=== PATIENT | female | born 1995 | race Caucasian/White ===

== ENCOUNTER 2016-09-12 22:04 | Emergency (ER) | payer BC, OTHER ==
[2016-09-12 22:44] VITALS: BP 108/74
[2016-09-13] MEDS ORDERED: Ciprofloxacin 0.3% OPTH.SOL* 2.5 ML BTL LEFT EYE ONE (00:21)
--- NOTE | 2016-09-13 00:28 | ED ---
Throat Pain/Nasal Congestion - HPI Summary HPI Summary: Patient had a drop of Gorilla glue splash in her left eye when a friend tried to glue a fake jewel to her jacket. She wears contacts so her friends immediately took her contact out of her eye but are unsure if they "got all of it". She flushed the eye with saline solution but still felt like there was something in her eye. She has sensitivity to light but is unsure if her vision has been affected since her vision is so poor at baseline. She denies headache, or previous injury to this eye. - History of Current Complaint Chief Complaint: EDEyeProblem Time Seen by Provider: 09/12/16 23:05 Hx Obtained From: Patient Onset/Duration: Sudden Onset Severity: Severe Associated Signs And Symptoms: Positive: FB Sensation Cough: None - Allergies/Home Medications Allergies/Adverse Reactions: Allergies Allergy/AdvReac Type Severity Reaction Status Date / Time SEAFOOD Allergy Rash Uncoded 09/12/16 22:41 PMH/Surg Hx/FS Hx/Imm Hx Endocrine/Hematology History: Denies: Hx Diabetes, Hx Thyroid Disease Cardiovascular History: Denies: Hx Hypertension Respiratory History: Denies: Hx Asthma, Hx Chronic Obstructive Pulmonary Disease (COPD), Hx Lung Cancer, Hx Pneumonia, Hx Pulmonary Embolism GI History: Denies: Hx Gall Bladder Disease, Hx Gastrointestinal Bleed, Hx Ulcer, Hx Urosepsis History: Denies: Hx Kidney Stones, Hx Renal Disease Sensory History: Reports: Hx Contacts or Glasses - R eye Opthamlomology History: Reports: Hx Contacts or Glasses - R eye Neurological History: Denies: Hx Dementia, Hx Migraine, Hx Seizures, Hx Transient Ischemic Attacks (TIA) Psychiatric History: Denies: Hx Anxiety, Hx Depression, Hx Schizophrenia, Hx Bipolar Disorder - Surgical History Surgery Procedure, Year, and Place: 2009 HYMENECTOMY - Immunization History Date of Tetanus Vaccine: utd Date of Influenza Vaccine: utd Infectious Disease History: No Infectious Disease History: Denies: Hx Clostridium Difficile, Hx Hepatitis, Hx Human Immunodeficiency Virus (HIV), Hx of Known/Suspected MRSA, Hx Shingles, Hx Tuberculosis, Hx Known/ Suspected VRE, Hx Known/Suspected VRSA, History Other Infectious Disease, Traveled Outside the [place] in Last 30 Days - Family History Known Family History: Positive: None Negative: Renal Disease, Blood Disorder Family History: no cardiovascular issues in family lineage - Social History Occupation: Student Lives: Alone Alcohol Use: Occasionally Alcohol Amount: 8 drinks 3 days a week Substance Use Type: Reports: None Smoking Status (MU): Former Smoker Have You Smoked in the Last Year: No Review of Systems Positive: Photophobia, Blurred Vision, Erythema Negative: Headache All Other Systems Reviewed And Are Negative: Yes Physical Exam Triage Information Reviewed: Yes Vital Signs On Initial Exam: Initial Vitals Temp Pulse Resp BP Pulse Ox 98.1 F 90 18 111/79 100 09/12/16 22:19 09/12/16 22:19 09/12/16 22:19 09/12/16 22:19 09/12/16 22:19 Vital Signs Reviewed: Yes Appearance: Positive: Well-Appearing, Well-Nourished, Pain Distress Skin: Positive: Warm, Skin Color Reflects Adequate Perfusion, Dry, Soft Head/Face: Positive: Normal Head/Face Inspection Eyes: Positive: EOMI, BERNARD, Conjunctiva Inflammed - left, Discharge - tears ENT: Positive: Hearing grossly normal Respiratory/Lung Sounds: Positive: Breath Sounds Present Cardiovascular: Positive: RRR Neurological: Positive: Sensory/Motor Intact, Alert, Oriented to Person Place, Time Psychiatric: Positive: Affect/Mood Appropriate AVPU Assessment: Alert - [place] Coma Scale Coma Scale Total: 15 Procedures - Eye Procedure Alcaine Drops Administered: Yes Eye Irrigated w/ Saline (ccs): 1,000 Antibiotic Ointment/Drps Admin: left eye Diagnostics - Vital Signs Vital Signs Temp Pulse Resp BP Pulse Ox 09/12/16 22:38 98.7 F 82 16 108/74 98 09/12/16 22:19 98.1 F 90 18 111/79 100 - Laboratory Lab Statement: Any lab studies that have been ordered have been reviewed, and results considered in the medical decision making process. EENT Course/Dx - Differential Diagnoses Differential Diagnoses: Abrasion, Conjunctivitis, Detached Retina, Keratitis, Mastoiditis, Penetrating Injury, Periorbital/Orbital Cellulitis, Retinal Artery Occlusion - Diagnoses Provider Diagnoses: Scleral hemorrhage - Provider Notifications Discussed Care of Patient with: Dr. Bahena, opthamologist. Discharge - Discharge Plan Condition: Stable Disposition: HOME Referrals: No Primary Care Phys,NOPCP [Primary Care Provider] - Jose Martin Bahena MD [Medical Doctor] - Additional Instructions: Please call Dr. Bahena's office Wednesday for an appointment that day. Use the medication provided as directed. Take ibuprofen 600mg three times daily with meals for the next 2-4 days to decrease pain. Return to the emergency department if symptoms worsen.
[2016-09-13] MEDS ORDERED: Ibuprofen TAB* 600 MG PO ONE (00:35)
[2016-09-13] MEDS ORDERED: Ondansetron ODT TAB* 4 MG PO ONE (00:36)
== END 2016-09-13 01:17 | disposition home or self-care (01) ==
LOC: ED 22:04
DX: H15.89 Other disorders of sclera (principal); Z87.891 Personal history of nicotine dependence
CPT/HCPCS: 99282; A9270-GY

== ENCOUNTER 2017-06-03 10:41 | Emergency (ER) | payer OTHER ==
[2017-06-03 12:11] VITALS: BP 109/65
--- NOTE | 2017-06-03 12:58 | UC ---
Complaint Female HPI - HPI Summary HPI Summary: 21 yo WF c/o dysuria, frequency and urgency 2 days after having sex which shes had in the past - History Of Current Complaint Chief Complaint: UCGU Stated Complaint: URINARY ISSUE Time Seen by Provider: 06/03/17 12:48 Hx Obtained From: Patient Hx Last Menstrual Period: 05/22/17 Onset/Duration: Gradual Onset Timing: Constant, Intermittent Severity Initially: Moderate Pain Intensity: 0 - Allergies/Home Medications Allergies/Adverse Reactions: Allergies Allergy/AdvReac Type Severity Reaction Status Date / Time SEAFOOD Allergy Rash Uncoded 06/03/17 12:11 Home Medications: Home Medications Naproxen TAB* [Naprosyn 250 mg TAB*] 250 mg PO Q8H PRN 06/03/17 [History Confirmed 06/03/17] PMH/Surg Hx/FS Hx/Imm Hx - Additional Past Medical History Additional PMH: UTIs Previously Healthy: Yes Other History Of: Negative For: HIV, Hepatitis B, Hepatitis C - Surgical History Surgical History: Yes Surgery Procedure, Year, and Place: 2009 HYMENECTOMY - Family History Known Family History: Positive: None Negative: Renal Disease, Blood Disorder Family History: no cardiovascular issues in family lineage - Social History Alcohol Use: Occasionally Alcohol Amount: 8 drinks 3 days a week Substance Use Type: None Smoking Status (MU): Former Smoker Have You Smoked in the Last Year: No - Immunization History Most Recent Influenza Vaccination: Season Vaccination Up to Date: Yes Review of Systems Constitutional: Negative Skin: Negative Eyes: Negative ENT: Negative Respiratory: Negative Cardiovascular: Negative Gastrointestinal: Negative Genitourinary: Dysuria, Frequency, Urgency Motor: Negative Neurovascular: Negative Musculoskeletal: Negative Neurological: Negative Psychological: Negative Is Patient Immunocompromised?: No All Other Systems Reviewed And Are Negative: Yes Physical Exam Triage Information Reviewed: Yes Appearance: Well-Appearing Vital Signs: Initial Vital Signs Temp 36.8 C 06/03/17 12:07 Pulse 68 06/03/17 12:07 Resp 15 06/03/17 12:07 BP 109/65 06/03/17 12:07 Pulse Ox 100 06/03/17 12:07 Eye Exam: Normal ENT Exam: Normal Dental Exam: Normal Neck exam: Normal Neck: Positive: 1 Respiratory Exam: Normal Cardiovascular Exam: Normal Abdominal Exam: Normal Abdomen Description: Positive: Soft, Other: - NO suprapubic tenderness. Negative: CVA Tenderness (R), CVA Tenderness (L), Distended, Guarding Musculoskeletal Exam: Normal Neurological Exam: Normal Psychological Exam: Normal Skin Exam: Normal Complaint Female Dx - Course Course Of Treatment: UA positive for blood only but given pt's recurrent sx of UTI, and hematuria, will tx for acute cystitis with Bactrim DS BID x 7days - Differential Dx/Diagnosis Provider Diagnoses: Acute cystitis Discharge - Discharge Plan Condition: Stable Disposition: HOME Prescriptions: Sulfamethox/Trimethoprim DS* [Bactrim DS 800/160 TAB*] 1 tab PO BID 7 Days #14 tab Patient Education Materials: Urinary Tract Infection in Women (ED) Referrals: No Primary Care Phys,NOPCP [Primary Care Provider] - Additional Instructions: as tolerated
== END 2017-06-03 13:35 | disposition home or self-care (01) ==
LOC: UCEAST 10:41
DX: N30.01 Acute cystitis with hematuria (principal); Z87.440 Personal history of urinary (tract) infections; Z32.02 Encounter for pregnancy test, result negative; Z91.013 Allergy to seafood; Z87.891 Personal history of nicotine dependence
CPT/HCPCS: 81003; 81025; 99212; G0463

== ENCOUNTER 2017-07-22 09:24 | Emergency (ER) | payer OTHER ==
[2017-07-22 09:33] VITALS: BP 109/65
--- NOTE | 2017-07-22 09:48 | UC ---
Alphonso Jones Nilda, scribed for Isabela Sterling MD on 07/22/17 at 0946 . Throat Pain/Nasal Ramakrishna HPI - HPI Summary HPI Summary: This patient is a 22 year old F presenting to [facility] with a chief complaint of constant sinus infection-like symptoms. She states shes had symptoms for the past week that had been resolving, but rebounded yesterday. The patient rates the pain 3/10 in severity. Symptoms aggravated and alleviated by nothing including OTC. nasal spray. no analgesia today. Patient reports rhinorrhea ( green), upper jaw pain, post-nasal drip, and cough. Patient denies fever, chills , and eye pain. Pt reports dental discomfort, PND no fever, chills, rash. No magallon , vision changse Daily medications include BCPs. She denies recent travel. NKDA. Patients medication reviewed this visit. - History of Current Complaint Chief Complaint: UCGeneralIllness Stated Complaint: SINUS PAIN Hx Obtained From: Patient Hx Last Menstrual Period: 06/16/17 Onset/Duration: Sudden Onset, Lasting Weeks, Still Present Severity: Mild Pain Intensity: 3 Pain Scale Used: 0-10 Numeric Cough: Nonproductive Associated Signs & Symptoms: Positive: Other - rhinorrhea (green), upper jaw pain, post-nasal drip, and cough. Patient denies fever, chills, and eye pain. - Allergies/Home Medications Allergies/Adverse Reactions: Allergies Allergy/AdvReac Type Severity Reaction Status Date / Time SEAFOOD Allergy Rash Uncoded 07/22/17 09:29 PMH/Surg Hx/FS Hx/Imm Hx Previously Healthy: Yes Other History Of: Negative For: HIV, Hepatitis B, Hepatitis C - Surgical History Surgical History: Yes Surgery Procedure, Year, and Place: 2010 HYMENECTOMY - Family History Known Family History: Negative: Cardiac Disease, Renal Disease, Blood Disorder Family History: no cardiovascular issues in family lineage - Social History Occupation: Student Alcohol Use: Occasionally Alcohol Amount: 8 drinks 3 days a week Substance Use Type: None Smoking Status (MU): Never Smoked Tobacco Have You Smoked in the Last Year: No Household Exposure Type: Cigarettes - Immunization History Most Recent Influenza Vaccination: Season Vaccination Up to Date: Yes Review of Systems Constitutional: Negative Eyes: Negative ENT: Nasal Discharge, Other - post nasal drip, upper jaw pain Respiratory: Cough All Other Systems Reviewed And Are Negative: Yes Physical Exam Triage Information Reviewed: Yes Appearance: Well-Appearing, No Pain Distress, Well-Nourished, Other: - congested Vital Signs: Initial Vital Signs Temp 98.4 F 07/22/17 09:30 Pulse 72 07/22/17 09:30 Resp 16 07/22/17 09:30 BP 109/65 07/22/17 09:30 Pulse Ox 100 07/22/17 09:30 Eye Exam: Normal Eyes: Positive: Conjunctiva Clear ENT Exam: Normal ENT: Positive: Normal ENT inspection, Pharyngeal erythema, Nasal congestion, Other - TM x 2 clear turbinates inflammed and boggy + PND no erythema, exudate uvula midline + erythema Dental Exam: Normal Neck exam: Normal Neck: Positive: Supple, Nontender, No Lymphadenopathy Respiratory Exam: Normal Respiratory: Positive: Chest non-tender, Lungs clear, Normal breath sounds, No respiratory distress, No accessory muscle use Cardiovascular Exam: Normal Cardiovascular: Positive: RRR, No Murmur, Pulses Normal Abdominal Exam: Normal Abdomen Description: Positive: Nontender, No Organomegaly, Soft Bowel Sounds: Positive: Present Musculoskeletal Exam: Normal Neurological Exam: Normal Psychological Exam: Normal Skin Exam: Normal Throat Pain/Nasal Course/Dx - Course Course Of Treatment: pt with progressive sinus congestion x 7 days, green secrtion. pt flying tomorrow. flonase. decongestant. abx. hydrate. motrin/ apap. secretion precaution. humidify - Differential Dx/Diagnosis Provider Diagnoses: sinusitis Discharge - Sign-Out/Discharge Documenting (check all that apply): Discharge - Discharge Plan Condition: Stable Disposition: HOME Prescriptions: Amoxicillin PO (*) [Amoxicillin 875 MG (*)] 875 mg PO BID #20 tab Fluticasone NASAL SPRAY 50MCG* [Flonase NASAL SPRAY 50MCG*] 2 spray BOTH NARES DAILY #1 btl Patient Education Materials: Sinusitis (ED) Referrals: [facility] [Provider Group] No Primary Care Phys,NOPCP [Primary Care Provider] - Additional Instructions: - Stay well hydrated. Drink plenty of non-alcoholic, non-caffinated beverages. - Alternate ibuprofen (Advil, Motrin) 600mg and Tylenol every 3 hours for pain or fever. Take with food. Do NOT take for more than 4-5 days. - These infections are spread by secretions - do NOT share eating or drinking utensils - clean items you share with other people such as cell phones, computer mouse, TV remote, computer tablets, etc. After you take antibiotics, , change your toothbrush and your pillowcase. - get plenty of restful sleep - use nasal spray daily as instructed. - humidify the air in the room where you sleep - boil water, run a hot steam shower, vaporizer, cups of water by heat register - okay to take over the counter decongestant and cough medication - it is recommended you take pseudoephederine to help with your congestion - contact your doctor or return with questions or concerns - Billing Disposition and Condition Condition: STABLE Disposition: HOME The documentation as recorded by the Alphonso cazares Nilda accurately reflects the service I personally performed and the decisions made by me, Isabela Sterling MD.
== END 2017-07-22 10:00 | disposition home or self-care (01) ==
LOC: UCEAST 09:24
DX: J32.9 Chronic sinusitis, unspecified (principal)
CPT/HCPCS: 99212; G0463

== ENCOUNTER 2017-09-28 13:45 | Emergency (ER) | payer BC, OTHER ==
[2017-09-28 13:57] VITALS: BP 107/65
--- NOTE | 2017-09-28 14:57 | UC ---
Complaint Female HPI - HPI Summary HPI Summary: SEVERAL DAYS OF DYSURIA, URINARY FREQUENCY AND URGENCY. NO FEVER, NAUSEA OR BACK PAIN. - History Of Current Complaint Chief Complaint: UCGU Stated Complaint: URINARY ISSUE Time Seen by Provider: 09/28/17 14:40 Hx Obtained From: Patient Hx Last Menstrual Period: 09/12/17 Onset/Duration: Gradual Onset, Lasting Days, Still Present Timing: Constant Severity Initially: Moderate Severity Currently: Moderate Pain Intensity: 3 Pain Scale Used: 0-10 Numeric Character: Burning Aggravating Factor(s): Urination Associated Signs And Symptoms: Negative: Fever, Back Pain, Nausea, Vomiting(# Of Episodes =) - Allergies/Home Medications Allergies/Adverse Reactions: Allergies Allergy/AdvReac Type Severity Reaction Status Date / Time SEAFOOD Allergy Rash Uncoded 09/28/17 13:57 PMH/Surg Hx/FS Hx/Imm Hx Previously Healthy: Yes Other History Of: Negative For: HIV, Hepatitis B, Hepatitis C - Surgical History Surgical History: Yes Surgery Procedure, Year, and Place: 2009 HYMENECTOMY - Family History Known Family History: Positive: None Negative: Cardiac Disease, Renal Disease, Blood Disorder Family History: no cardiovascular issues in family lineage - Social History Alcohol Use: Rare Alcohol Amount: 8 drinks 3 days a week Substance Use Type: None Smoking Status (MU): Never Smoked Tobacco Have You Smoked in the Last Year: No Household Exposure Type: Cigarettes - Immunization History Most Recent Influenza Vaccination: Season Vaccination Up to Date: Yes Review of Systems Constitutional: Negative ENT: Negative Respiratory: Negative Cardiovascular: Negative Gastrointestinal: Negative Genitourinary: Dysuria, Frequency, Urgency All Other Systems Reviewed And Are Negative: Yes Physical Exam Triage Information Reviewed: Yes Appearance: Well-Appearing, No Pain Distress, Well-Nourished Vital Signs: Initial Vital Signs Temp 98 F 09/28/17 13:54 Pulse 68 09/28/17 13:54 Resp 15 09/28/17 13:54 BP 107/65 09/28/17 13:54 Pulse Ox 100 09/28/17 13:54 Vital Signs Reviewed: Yes Eyes: Positive: Conjunctiva Clear ENT: Positive: Hearing grossly normal Neck: Positive: Supple Respiratory: Positive: No respiratory distress, No accessory muscle use Cardiovascular: Positive: Pulses Normal Abdomen Description: Positive: Nontender, Soft. Negative: CVA Tenderness (R), CVA Tenderness (L), Distended, Guarding Musculoskeletal: Positive: No Edema Neurological: Positive: Alert Psychological: Positive: Age Appropriate Behavior Skin: Negative: rashes Diagnostics - Laboratory Diagnostic Studies Completed/Ordered: URINE DIP SP. GR. 1.025, 2+ BLOOD, TRACE LEUKS, POSITIVE NITRITES. URINE HCG NEG Complaint Female Dx - Differential Dx/Diagnosis Provider Diagnoses: UTI Discharge - Sign-Out/Discharge Documenting (check all that apply): Discharge/Admit/Transfer - Discharge Plan Condition: Stable Disposition: HOME Prescriptions: Sulfamethox/Trimethoprim DS* [Bactrim DS 800/160 TAB*] 1 tab PO BID #10 tab Patient Education Materials: Urinary Tract Infection in Women (ED) Referrals: No Primary Care Phys,NOPCP [Primary Care Provider] - Additional Instructions: CALL THE NUMBER BELOW FOR ASSISTANCE IN ESTABLISHING WITH A PCP An additional resource available to assist in finding the appropriate physician for your health care needs is the [facility] ([facility]). You may contact them by calling [phone]. - Billing Disposition and Condition Condition: STABLE Disposition: Home
== END 2017-09-28 14:56 | disposition home or self-care (01) ==
LOC: UCEAST 13:45
DX: N39.0 Urinary tract infection, site not specified (principal); Z32.02 Encounter for pregnancy test, result negative; Z91.013 Allergy to seafood
CPT/HCPCS: 81003; 84702; 87077; 87086; 87186; 99212; G0463

== ENCOUNTER 2018-06-21 10:54 | Emergency (ER) | payer BC ==
[2018-06-21 11:14] VITALS: BP 101/55
--- NOTE | 2018-06-21 11:24 | UC ---
Complaint Female HPI - HPI Summary HPI Summary: 22 yo female presents with low back pain. She tells me that she has had UTIs in the past and the only symptoms she usually has is sudden low back pain and no urinary symptoms. Her low back pain started yesterday with no known injury. She is not having any urinary symptoms such as dysuria, frequency, or hematuria. Denies abdominal pain, n/v, or fever. No hx of kidney stone. - History Of Current Complaint Chief Complaint: UCGU Stated Complaint: L BACK PAIN Time Seen by Provider: 06/21/18 11:23 Hx Obtained From: Patient Hx Last Menstrual Period: 06/20/18 Onset/Duration: Sudden Onset Severity Initially: Mild Severity Currently: Mild Pain Intensity: 3 Pain Scale Used: 0-10 Numeric - Allergies/Home Medications Allergies/Adverse Reactions: Allergies Allergy/AdvReac Type Severity Reaction Status Date / Time No Known Allergies Allergy Verified 06/21/18 11:14 Home Medications: Home Medications Norethindrone AC-Eth Estradiol [Junel 05/15] 1 tab PO DAILY WITH MEAL 06/21/18 [ History Confirmed 06/21/18] PMH/Surg Hx/FS Hx/Imm Hx - Additional Past Medical History Additional PMH: None Other History Of: Negative For: HIV, Hepatitis B, Hepatitis C - Surgical History Surgical History: Yes Surgery Procedure, Year, and Place: 2010 HYMENECTOMY - Family History Known Family History: Positive: None Negative: Cardiac Disease, Renal Disease, Blood Disorder Family History: no cardiovascular issues in family lineage - Social History Lives: With Family Alcohol Use: Occasionally Alcohol Amount: 8 drinks 3 days a week Substance Use Type: None Smoking Status (MU): Former Smoker Have You Smoked in the Last Year: No Household Exposure Type: Cigarettes - Immunization History Most Recent Influenza Vaccination: Season Vaccination Up to Date: Yes Review of Systems All Other Systems Reviewed And Are Negative: Yes Constitutional: Positive: Negative Skin: Positive: Negative Respiratory: Positive: Negative Cardiovascular: Positive: Negative Gastrointestinal: Positive: Negative Genitourinary: Positive: Negative Musculoskeletal: Positive: Other: - back pain Neurological: Positive: Negative Psychological: Positive: Negative Physical Exam - Summary Physical Exam Summary: GENERAL: NAD. WDWN. No pain distress. SKIN: No rashes, sores, lesions, or open wounds. NECK: Supple. Nontender. No lymphadenopathy. CHEST: CTAB. No r/r/w. No accessory muscle use. Breathing comfortably and in no distress. CV: RRR. Without m/r/g. Pulses intact. Cap refill <2seconds ABDOMEN: Soft. NTTP. No distention or guarding. No CVA tenderness. Bowel sounds present NEURO: Alert. PSYCH: Age appropriate behavior. Triage Information Reviewed: Yes Vital Signs: Initial Vital Signs Temp 98.6 F 06/21/18 11:10 Pulse 74 06/21/18 11:10 Resp 18 06/21/18 11:10 BP 101/55 06/21/18 11:10 Pulse Ox 100 06/21/18 11:10 Laboratory Tests 06/21/18 11:30 POC Urine Color Dark yellow POC Urine Clarity Slightly cloudy POC Urine pH 5.5 POC Ur Specif [place] 1.025 POC Urine Protein Negative POC Ur Glucose (UA) Negative POC Urine Ketones Negative POC Urine Blood 2+ A POC Urine Nitrite Negative POC Urine Bilirubin Negative POC Urine Urobilinogen 0.2 POC U Leukocyte Esteras Trace A Vital Signs Reviewed: Yes Complaint Female Dx - Course Course Of Treatment: UA with leuks and blood - pt currently on period. Will treat as UTI and f/u with culture results. - Differential Dx/Diagnosis Provider Diagnosis: UTI (urinary tract infection) Discharge - Sign-Out/Discharge Documenting (check all that apply): Patient Departure All imaging exams completed and their final reports reviewed: No Studies - Discharge Plan Condition: Stable Disposition: HOME Prescriptions: Nitrofurantoin Monohyd/M-Cryst [Macrobid 100 mg Capsule] 100 mg PO BID #10 cap Patient Education Materials: Urinary Tract Infection in Women (DC) Referrals: No Primary Care Phys,NOPCP [Primary Care Provider] - Additional Instructions: If you develop a fever, shortness of breath, chest pain, new or worsening symptoms - please call your PCP or go to the ED. - Billing Disposition and Condition Condition: STABLE Disposition: Home
--- NOTE | 2018-06-23 08:54 | UC ---
- Progress Note Progress Note: urine no growth no change [facility] 06/23 Course/Dx - Diagnoses Provider Diagnoses: UTI (urinary tract infection) Discharge - Sign-Out/Discharge Documenting (check all that apply): Post-Discharge Follow Up All imaging exams completed and their final reports reviewed: No Studies - Discharge Plan Condition: Stable Disposition: HOME Prescriptions: Nitrofurantoin Monohyd/M-Cryst [Macrobid 100 mg Capsule] 100 mg PO BID #10 cap Patient Education Materials: Urinary Tract Infection in Women (DC) Referrals: No Primary Care Phys,NOPCP [Primary Care Provider] - Additional Instructions: If you develop a fever, shortness of breath, chest pain, new or worsening symptoms - please call your PCP or go to the ED. - Billing Disposition and Condition Condition: STABLE Disposition: Home
== END 2018-06-21 11:59 | disposition home or self-care (01) ==
LOC: UCEAST 10:54
DX: N39.0 Urinary tract infection, site not specified (principal); Z87.891 Personal history of nicotine dependence
CPT/HCPCS: 81003; 87086; 99212; G0463

== ENCOUNTER 2018-08-22 07:01 | Emergency (ER) | payer OTHER, BC ==
--- OUTSIDE RECORDS SUMMARY | 2018-08-22 07:08 | XMS REPORT | Continuity of Care Document ---
:1995 Author Organization [facility] Address [address] [place], [place] [id number] Phone Care Team Providers Name Role Phone Marilee Diaz NP Unavailable Unavailable Allergies, Adverse Reactions, Alerts Substance Reaction Status No Known Allergies Active Medications Medication Instructions Dosage Effective Dates Status Comments (start - stop) (unknown Not Available - Active strength) Problems Condition Effective Dates (start - Clinical Status Comments stop) Encntr screen for infections w sexl mode of transmiss Encounter for surveillance of contraceptive pills Procedures Procedure Date OFFICE/OUTPATIENT VISIT, 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 Other Pediatric Associate.Svc. STI Results Test Name Date and Time Measure Units Reference Range Abnormal Flag Status Comments No information Advance Directives Directive Yes / No Effective Date File Name No information Encounters Encounter Practice Location Reason(s) Diagnoses Date Provider Providers Description For Visit Copied on Encounter OFFICE/OUTPA [facility] Encntr screen for Mar-2 [place] [facility] [address]. Provider: CHARLA [facility] exam (F) mode of [address] (chief transmissEncounter [place], [address], [address] complaint) for surveillance of [address] [place] contraceptive pills [place], [place], [place], [place], [address], [place], [id number]. [id number], [place]. [place] tel:[phone] Family History Family Member Diagnosis Age At Onset No information Immunizations Vaccine Date Status Comments No information Payers Payer name Insurance type Covered republican ID Authorization(s) [facility] [id number] Social History Type Description Quantity Date Captured Comments Alcohol Use Details Unknown Caffeine Use Details Unknown Tobacco Use Status Current non-smoker Smoking Status Never smoker Non-Smoking Tobacco : No Details Available : No Details Available 2018 Use Details Sex Female Vital Signs Date / Height Weight BMI Pulse Blood Temperature Respiratory Body Head BMI Pulse Inhaled Time: Rate Pressure Rate Surface Circumference percentile Ox Ox Area No information Chief Complaint And Reason For Visit Most recent encounter only, dated 07/21/2018 13:50'. STI without exam (F ) (chief complaint) Reason For Referral Reason For Referral No information Plan Of Treatment Date Type Action Status No information History Of Present Illness Encounter Date Complaint History Of Present Illness No information Functional Status Date Functional Assessment No information Medications Administered Medication Instructions Dosage Effective Dates (start - stop) Status Comments No information Instructions Date Instruction Additional Information No information Assessments Type Assessment Date assessment Encntr screen for infections w sexl mode of transmiss assessment Encounter for surveillance of contraceptive pills Goals Health Concern Goal Type Priority Status Date No information Medical Equipment Description Device [facility] Device Identifier Effective Dates (start - stop ) Status No information Mental Status Date Cognitive Assessment No information Health Concerns Observation Date No information Concern Status Date No information
[2018-08-22] MEDS ORDERED: Ibuprofen TAB* 400 MG PO ONE (07:15)
[2018-08-22] MEDS ORDERED: cefTRIAXone VIAL(*) 1,000 MG VIAL IM ONE (07:15)
[2018-08-22] MEDS ORDERED: Lidocaine 1% MPF* 2 ML VIAL INJ ONE (07:15)
[2018-08-22 07:16] VITALS: BP 115/74
--- NOTE | 2018-08-22 07:20 | UC ---
Complaint Female HPI - HPI Summary HPI Summary: 23-year-old otherwise healthy female with a history of UTI/kidney infection presents with dysuria, frequency and left-sided low back pain that began yesterday. She states that sometimes her urinary symptoms go unnoticed until its late in the course. She denies any fever, nausea, vomiting or abdominal pain. She has no history of kidney stones. She denies allergy to medication. She has had a mild sore throat. - History Of Current Complaint Chief Complaint: UCGU Stated Complaint: KIDNEY PAIN Time Seen by Provider: 08/22/18 07:08 Hx Obtained From: Patient Hx Last Menstrual Period: 08/18/18 Pain Intensity: 6 - Allergies/Home Medications Allergies/Adverse Reactions: Allergies Allergy/AdvReac Type Severity Reaction Status Date / Time No Known Allergies Allergy Verified 08/22/18 07:15 PMH/Surg Hx/FS Hx/Imm Hx Previously Healthy: Yes GI/ History: Other - UTI/kidney infections Other History Of: Negative For: HIV, Hepatitis B, Hepatitis C - Surgical History Surgical History: Yes Surgery Procedure, Year, and Place: 2009 HYMENECTOMY - Family History Known Family History: Positive: None Negative: Cardiac Disease, Renal Disease, Blood Disorder Family History: no cardiovascular issues in family lineage - Social History Alcohol Use: Occasionally Alcohol Amount: 8 drinks 3 days a week Substance Use Type: None Smoking Status (MU): Former Smoker Have You Smoked in the Last Year: No Household Exposure Type: Cigarettes - Immunization History Most Recent Influenza Vaccination: Season Vaccination Up to Date: Yes Review of Systems All Other Systems Reviewed And Are Negative: Yes Constitutional: Negative: Fever, Chills Respiratory: Positive: Negative Cardiovascular: Positive: Negative Gastrointestinal: Negative: Abdominal Pain, Nausea Genitourinary: Positive: Dysuria, Frequency Motor: Positive: Negative Musculoskeletal: Positive: Other: - L low back pain Is Patient Immunocompromised?: Yes Physical Exam Triage Information Reviewed: Yes Appearance: Well-Appearing, No Pain Distress, Well-Nourished Vital Signs: Initial Vital Signs Temp 98.3 F 08/22/18 07:09 Pulse 82 08/22/18 07:09 Resp 18 08/22/18 07:09 BP 115/74 08/22/18 07:09 Pulse Ox 99 08/22/18 07:09 Eye Exam: Normal ENT: Positive: Pharynx normal. Negative: Pharyngeal erythema Neck: Positive: Supple Respiratory: Positive: Lungs clear Cardiovascular: Positive: RRR Abdomen Description: Positive: Nontender, Soft Bowel Sounds: Positive: Present Pelvic Exam: Positive: Other - L CVA tenderness without pain with palpations Musculoskeletal: Positive: Strength Intact, ROM Intact Neurological Exam: Normal Skin Exam: Normal Complaint Female Dx - Course Course Of Treatment: Patient was significant inflammatory findings in the urine. Minor CVA tenderness. No fever and no nausea/vomiting. IM Rocephin given here and will continue Keflex, Pyridium. Follow-up with [facility]. - Differential Dx/Diagnosis Differential Diagnosis/HQI/PQRI: Renal Colic, Sexually Transmitted Disease, Ureteral Stone, Urinary Tract Infection Provider Diagnosis: UTI (urinary tract infection) Discharge - Sign-Out/Discharge Documenting (check all that apply): Patient Departure All imaging exams completed and their final reports reviewed: No Studies - Discharge Plan Condition: Improved Disposition: HOME Prescriptions: Cephalexin CAP* [Keflex CAP*] 500 mg PO TID #20 cap Naproxen [Naproxen 250 mg tab] 250 mg PO BID PRN #20 tablet PRN Reason: Pain Phenazopyridine 200 mg (NF) [Pyridium 200 MG tab *] 200 mg PO TID #9 tab Patient Education Materials: Urinary Tract Infection in Women (ED) Referrals: [facility] [Provider Group] Additional Instructions: Drink plenty of fluids today, cranberry juice may help. Return with fever, nausea/vomiting, worsening, new symptoms or other concerns. - Billing Disposition and Condition Condition: IMPROVED Disposition: Home - Attestation Statements Document Initiated by Lianna: No
[2018-08-22] MEDS ORDERED: Lidocaine 1%* 5 ML VIAL ONE (07:36)
[2018-08-22] MEDS ORDERED: Lidocaine 1%* 5 ML VIAL INJ ONE (07:41)
== END 2018-08-22 08:00 | disposition home or self-care (01) ==
LOC: UCEAST 07:01
DX: N39.0 Urinary tract infection, site not specified (principal); Z87.440 Personal history of urinary (tract) infections; J02.9 Acute pharyngitis, unspecified; Z87.891 Personal history of nicotine dependence
CPT/HCPCS: 81003; 84702; 87077; 87086; 87186; 96372; 99212; A9270-GY; G0463; J0696

== ENCOUNTER 2019-04-20 09:29 | Emergency (ER) | payer BC ==
--- OUTSIDE RECORDS SUMMARY | 2019-04-20 09:36 | XMS REPORT | Summary of Care ---
:1995 Author Organization [facility] [place] [address] Care Team Providers Name Role Phone Unavailable Primary Care Provider Unavailable Reason for Referral Diagnostic Imaging (Routine) Status Reason Specialty Diagnoses / Procedures Referred By Contact Referred To Contact Closed Diagnoses Adolescent multigravida 16 years of age or older in third trimester Larisa Benites, Procedures US OB Abd Follow Up [address] [place] [address] Reason for Visit Diagnostic Imaging (Routine) Status Reason Specialty Diagnoses / Procedures Referred By Contact Referred To Contact Closed Diagnoses Adolescent multigravida 16 years of age or older in third trimester Larisa Benites, Procedures US OB Abd Follow Up [address] [place] [address] Encounter Details Date Type Department Care Team Description 04/18/2019 Hospital Encounter POB ULTRASOUND Jose Gjewell, Adolescent [facility] [place] Larisa multigravida [address] of age or older in [facility] third trimester [address] [place], [place] [phone] [address] [phone] Allergies Not on Filedocumented as of this encounter (statuses as of 04/19/2019) Medications Not on filedocumented as of this encounter (statuses as of 04/19/2019) Active Problems Not on filedocumented as of this encounter (statuses as of 04/19/2019) Social History Tobacco Use Types Packs/Day Years Used Date Never Assessed Sex Assigned at Date Recorded Female 03/09/2019 1:20 PM EST Job Start Date Occupation Industry Not on file Not on file Not on file Travel History Travel Start Travel End No recent travel history available. documented as of this encounter Plan of Treatment Health Maintenance Due Date Last Done Comments CERVICAL CANCER SCREENING 3 YEAR 1995 HPV Vaccine-3 doses (1 - Female 2-dose series) 07/19/2006 Tetanus,Diphtheria,Pertussis (Tdap) Vaccine (#1) 07/19/2006 documented as of this encounter Procedures Procedure Name Priority Date/Time Associated Diagnosis Comments US OB ABD Routine 04/18/2019 9:50 Adolescent Results for this FOLLOWUP AM EST multigravida 16 years procedure are in of age or older in the results third trimester section. documented in this encounter Results US OB ABD FOLLOWUP (04/18/2019 9:50 AM EST) Specimen Impressions Performed At IMPRESSION: [facility] 1. Single Live Intrauterine Gestation averaging 31 weeks and 3 days. EDC based on 1st sonogram is 06/24/2019 Narrative Performed At EXAMINATION: [facility] US OB ABD FOLLOWUP HISTORY: Adolescent multigravida 16 years of age or older in third trimester COMPARISON: 18 TECHNIQUE: sonography was performed. FINDINGS: Transabdominal evaluation of the gravid uterus demonstrates a single live intrauterine gestation in vertex presentation. The placenta has formed fundal/anterior free of the internal cervical os. There is a normal amount of amniotic fluid with an index of 14.4 cm. Biparietal diameter: 31 weeks Head circumference: 31 weeks 1 day Abdominal circumference: 32 weeks 6 days Femur length: 30 weeks 4 days The composite gestational age based on ultrasound criteria is 31 weeks, 3 days. The estimated date of confinement based on today's study is 06/24/2027. Estimated weight is 1849 g which corresponds to 70 percentile for corresponding gestational age There is normal diaphragm, stomach, bladder cardiac activity is present at 146 beats per minute. body motion is present. Cervical length measures 3.7 cm Procedure Note Clif, External Ris In - 04/18/2019 10:18 AM EST EXAMINATION: US OB ABD FOLLOWUP HISTORY: Adolescent multigravida 16 years of age or older in third trimester COMPARISON: 18 TECHNIQUE: sonography was performed. FINDINGS: Transabdominal evaluation of the gravid uterus demonstrates a single live intrauterine gestation in vertex presentation. The placenta has formed fundal/anterior free of the internal cervical os. There is a normal amount of amniotic fluid with an index of 14.4 cm. Biparietal diameter: 31 weeks Head circumference: 31 weeks 1 day Abdominal circumference: 32 weeks 6 days Femur length: 30 weeks 4 days The composite gestational age based on ultrasound criteria is 31 weeks, 3 days. The estimated date of confinement based on today's study is 06/24/2027. Estimated weight is 1849 g which corresponds to 70 percentile for corresponding gestational age There is normal diaphragm, stomach, bladder cardiac activity is present at 146 beats per minute. body motion is present. Cervical length measures 3.7 cm IMPRESSION: 1. Single Live Intrauterine Gestation averaging 31 weeks and 3 days. EDC based on 1st sonogram is 06/24/2019 Performing Organization Address City/State/Zipcode Phone Number [facility] documented in this encounter Visit Diagnoses Diagnosis Adolescent multigravida 16 years of age or older in third trimester documented in this encounter documented as of this encounter
--- OUTSIDE RECORDS SUMMARY | 2019-04-20 09:36 | XMS REPORT | Summary of Care ---
:1995 Author Organization [facility] Address [place] [address] Care Team Providers Name Role Phone Unavailable Primary Care Provider Unavailable Reason for Referral Diagnostic Imaging (Routine) Status Reason Specialty Diagnoses / Referred By Referred To Procedures Contact Contact Pending Review Diagnoses Encounter for test, result positive [place], Procedures US OB After 1St Trimester Evelyn, DO [address] [place] [address] Reason for Visit Diagnostic Imaging (Routine) Status Reason Specialty Diagnoses / Referred By Referred To Procedures Contact Contact Pending Review Diagnoses Encounter for test, result positive [place], Procedures US OB After 1St Trimester Evelyn, DO [address] [place] [address] Encounter Details Date Type Department Care Team Description 03/09/2019 Hospital Encounter POB ULTRASOUND [place], Encounter for [address] [facility] Evelyn, test, [place] [address] [address] result positive [phone] [place] [address] [phone] Allergies Not on Filedocumented as of this encounter (statuses as of 03/10/2019) Medications Not on filedocumented as of this encounter (statuses as of 03/10/2019) Active Problems Not on filedocumented as of this encounter (statuses as of 03/10/2019) Social History Tobacco Use Types Packs/Day Years Used Date Never Assessed Sex Assigned at Date Recorded Female 03/09/2019 1:20 PM EST Job Start Date Occupation Industry Not on file Not on file Not on file Travel History Travel Start Travel End No recent travel history available. documented as of this encounter Plan of Treatment Not on filedocumented as of this encounter Procedures Procedure Name Priority Date/Time Associated Diagnosis Comments US OB AFTER 1ST Routine 03/09/2019 2:37 PM Encounter for Results for this TRIMESTER EST test, procedure are in result positive the results section. documented in this encounter Results US OB AFTER 1ST TRIMESTER (03/09/2019 2:37 PM EST) Specimen Impressions Performed At IMPRESSION: [facility] 1. Single Live Intrauterine Gestation averaging 24 weeks and 5 days. 2. Four-chamber view of the heart and right ventricular outflow tract view are not well assessed Narrative Performed At EXAMINATION: [facility] US OB AFTER 1ST TRIMESTER HISTORY: Encounter for test, result positive COMPARISON: None. TECHNIQUE: sonography was performed. FINDINGS: Transabdominal evaluation of the gravid uterus demonstrates a single live intrauterine gestation in variable presentation. The placenta has formed anteriorly and fundally and is free of the internal cervical os. There is a normal amount of amniotic fluid with an index of 17.6 cm. The largest fluid pocket measures 5.5 cm Biparietal diameter: 60.8 mm corresponding to a 24 week 5 day gestational size Head circumference: 215.4 mm corresponding to a 23 week 4 day gestational size Abdominal circumference: 207.5 mm corresponding to a 25 week 2 day gestational size Femur length: 45.8 mm corresponding to a 25 week 1 day gestational size The composite gestational age based on ultrasound criteria is 24 weeks, 5 days. The estimated date of confinement based on today's study is 06/24/2019. Anatomy: Head: Normal. Face, Neck: Normal. Thoracic Cavity: Normal. Heart: Four-chamber view of the heart is not well assessed. Outflow Tracts: The left ventricular outflow tract is normal. The right ventricular outflow tract view is not well assessed Abdominal Cavity: Normal. Stomach: Normal. Right Kidney: Normal. Left Kidney: Normal. Bladder: Normal. Abdominal Wall: Normal. Spine: Normal. Extremities: Normal. Genitalia: Not well assessed Umbilical Cord: 3 vessel view of the umbilical cord with insertional views are normal. cardiac activity is present at 137 beats per minute. body motion is present. The cervix measures 3.7 cm. The estimated weight is 766 g plus or minus 115 g Procedure Note Clif, External Ris In - 03/09/2019 4:15 PM EST EXAMINATION: US OB AFTER 1ST TRIMESTER HISTORY: Encounter for test, result positive COMPARISON: None. TECHNIQUE: sonography was performed. FINDINGS: Transabdominal evaluation of the gravid uterus demonstrates a single live intrauterine gestation in variable presentation. The placenta has formed anteriorly and fundally and is free of the internal cervical os. There is a normal amount of amniotic fluid with an index of 17.6 cm. The largest fluid pocket measures 5.5 cm Biparietal diameter: 60.8 mm corresponding to a 24 week 5 day gestational size Head circumference: 215.4 mm corresponding to a 23 week 4 day gestational size Abdominal circumference: 207.5 mm corresponding to a 25 week 2 day gestational size Femur length: 45.8 mm corresponding to a 25 week 1 day gestational size The composite gestational age based on ultrasound criteria is 24 weeks, 5 days. The estimated date of confinement based on today's study is 06/24/2019. Anatomy: Head: Normal. Face, Neck: Normal. Thoracic Cavity: Normal. Heart: Four-chamber view of the heart is not well assessed. Outflow Tracts: The left ventricular outflow tract is normal. The right ventricular outflow tract view is not well assessed Abdominal Cavity: Normal. Stomach: Normal. Right Kidney: Normal. Left Kidney: Normal. Bladder: Normal. Abdominal Wall: Normal. Spine: Normal. Extremities: Normal. Genitalia: Not well assessed Umbilical Cord: 3 vessel view of the umbilical cord with insertional views are normal. cardiac activity is present at 137 beats per minute. body motion is present. The cervix measures 3.7 cm. The estimated weight is 766 g plus or minus 115 g IMPRESSION: 1. Single Live Intrauterine Gestation averaging 24 weeks and 5 days. 2. Four-chamber view of the heart and right ventricular outflow tract view are not well assessed Performing Organization Address City/State/Zipcode Phone Number [facility] documented in this encounter Visit Diagnoses Diagnosis Encounter for test, result positive examination or test, positive result documented in this encounter Insurance Payer Benefit Plan / Subscriber ID Effective Dates Phone Address Type Group MEDICAID [place] MEDICA[place] xxxxxxxx 2019-Present documented as of this encounter
[2019-04-20 09:40] VITALS: BP 102/66
--- NOTE | 2019-04-20 10:01 | UC ---
Lower Extremity/Ankle HPI - HPI Summary HPI Summary: 23 yo woman, takes oral contraceptives, with pain in the left calf x 2 days. Recently flew back from [place] x 2 days ago, with onset of pain after taking a nap with her left leg tucked under her body-->awoke with pain in the calf. Smokes occasionally, negative FH of clotting disorders. - History of Current Complaint Chief Complaint: UCLowerExtremity Stated Complaint: PAIN IN BACK OF LEG Time Seen by Provider: 04/20/19 09:59 Hx Obtained From: Patient Hx Last Menstrual Period: 08/18/18 Onset/Duration: Sudden Onset, Lasting Days Severity Initially: Moderate Severity Currently: Moderate Pain Intensity: 7 Aggravating Factor(s): Standing, Ambulation Alleviating Factor(s): Rest Able to Bear Weight: Yes - Risk Factors Gout Risk Factors: Negative DVT Risk Factors: Oral Contraceptives, Smoking, Recent Travel Septic Arthritis Risk Factor: Negative - Allergies/Home Medications Allergies/Adverse Reactions: Allergies Allergy/AdvReac Type Severity Reaction Status Date / Time No Known Allergies Allergy Verified 04/20/19 09:40 PMH/Surg Hx/FS Hx/Imm Hx Previously Healthy: Yes Other History Of: Negative For: HIV, Hepatitis B, Hepatitis C - Surgical History Surgical History: Yes Surgery Procedure, Year, and Place: 2010 HYMENECTOMY - Family History Known Family History: Positive: None, Other - No FH of DVT Negative: Cardiac Disease, Renal Disease, Blood Disorder Family History: no cardiovascular issues in family lineage - Social History Occupation: Student - just graduated Lives: With Family Alcohol Use: Occasionally Alcohol Amount: 8 drinks 3 days a week Substance Use Type: None Smoking Status (MU): Former Smoker Have You Smoked in the Last Year: No Household Exposure Type: Cigarettes - Immunization History Most Recent Influenza Vaccination: Season Vaccination Up to Date: Yes Review of Systems All Other Systems Reviewed And Are Negative: Yes Constitutional: Positive: Negative Skin: Positive: Negative Eyes: Positive: Negative ENT: Positive: Negative Respiratory: Negative: Shortness Of Breath, Cough Cardiovascular: Negative: Chest Pain Gastrointestinal: Positive: Negative Genitourinary: Positive: Negative Motor: Positive: Negative Neurovascular: Positive: Other - swelling posterior left calf Musculoskeletal: Positive: Negative Neurological: Positive: Negative Psychological: Positive: Negative Is Patient Immunocompromised?: No Physical Exam Triage Information Reviewed: Yes Appearance: Well-Appearing, No Pain Distress Vital Signs: Initial Vital Signs Temp 98 F 04/20/19 09:37 Pulse 74 04/20/19 09:37 Resp 16 04/20/19 09:37 BP 102/66 04/20/19 09:37 Pulse Ox 100 04/20/19 09:37 ENT: Positive: Pharynx normal Neck: Positive: Supple, Nontender, No Lymphadenopathy Respiratory: Positive: Lungs clear, Normal breath sounds Cardiovascular: Positive: RRR, No Murmur Musculoskeletal Exam: Other - left calf very tender to palpation just inferior to the left knee joint, measuring 0.5 cm larger than the right side. No erythema or edema. Neurological Exam: Normal Psychological Exam: Normal Skin Exam: Normal Diagnostics - Radiology No standard instances Radiology Interpretation Completed By: Radiologist Summary of Radiographic Findings: No evidence of deep venous thrombosis per Dr. Camejo. Lower Extremity Course/Dx - Course Course Of Treatment: Hot compressing and ibuprofen for MSK pain - Differential Dx/Diagnosis Differential Diagnosis/HQI/PQRI: Cellulitis, Contusion, DVT, Sprain, Strain Provider Diagnosis: Gastrocnemius strain, left Discharge ED - Sign-Out/Discharge Documenting (check all that apply): Patient Departure All imaging exams completed and their final reports reviewed: Yes - Discharge Plan Condition: Stable Disposition: HOME Patient Education Materials: Musculoskeletal Pain (ED) Referrals: No Primary Care Phys,NOPCP [Primary Care Provider] - Additional Instructions: There is no evidence of clot. You can warm compress the muscle, and use ibuprofen 600mg up to 3 times per day for pain. - Billing Disposition and Condition Condition: STABLE Disposition: Home
== END 2019-04-20 11:58 | disposition home or self-care (01) ==
LOC: UCEAST 09:29
DX: S86.912A Strain of unspecified muscle(s) and tendon(s) at lower leg level, left leg, initial encounter (principal); Z87.891 Personal history of nicotine dependence; X58.XXXA Exposure to other specified factors, initial encounter; Y92.9 Unspecified place or not applicable
CPT/HCPCS: 99211; G0463